=== PATIENT | female | born 1950 | race Caucasian/White ===

== ENCOUNTER → 2017-01-14 | Outpatient (CLI) | payer MEDICARE, OTHER | LOC: MC.RAD 10:58 | DX: Z12.31 Encounter for screening mammogram for malignant neoplasm of breast (principal) ==

== ENCOUNTER → 2018-11-17 | Outpatient (CLI) | payer MEDICARE, OTHER ==
[~2018-11-17] MED LIST: ZOCOR 40MG40 MG PO
== END ==
LOC: COL.VAS 11:06
DX: M79.604 Pain in right leg (principal)

== ENCOUNTER → 2019-06-03 | Outpatient (CLI) | payer MEDICARE, OTHER | LOC: MC.RAD 11:00 | DX: Z12.31 Encounter for screening mammogram for malignant neoplasm of breast (principal) ==

== ENCOUNTER → 2020-06-22 | Outpatient (CLI) | payer MEDICARE, OTHER | LOC: MC.RAD 14:35 | DX: R92.2 Inconclusive mammogram (principal) ==

== ENCOUNTER → 2021-08-08 | Outpatient (CLI) | payer MEDICARE, OTHER | LOC: MC.RAD 09:50 | DX: Z12.31 Encounter for screening mammogram for malignant neoplasm of breast (principal) ==

== ENCOUNTER → 2022-08-20 | Outpatient (CLI) | payer MEDICARE, OTHER | LOC: MC.RAD 13:33 | DX: Z12.31 Encounter for screening mammogram for malignant neoplasm of breast (principal) ==

== ENCOUNTER → 2024-03-09 | Outpatient (CLI) | payer MEDICARE, OTHER | LOC: COL.RAD 15:26 | DX: I65.23 Occlusion and stenosis of bilateral carotid arteries (principal) ==